=== PATIENT | female | born 1950 | race Two or more races ===

== ENCOUNTER 2021-08-28 14:36 | Outpatient (CLI) | payer MEDICARE | END 2021-08-28 14:37 | disposition home or self-care (01) | LOC: CSHMAMMO 14:36 | PROVIDERS: ATTEND Family Medicine | DX: Z12.31 Encounter for screening mammogram for malignant neoplasm of breast (principal); Z13.820 Encounter for screening for osteoporosis; M85.851 Other specified disorders of bone density and structure, right thigh; M85.852 Other specified disorders of bone density and structure, left thigh | CPT/HCPCS: 77063; 77067; 77080 ==

== ENCOUNTER 2022-10-07 10:53 | Outpatient (CLI) | payer MEDICARE | END 2022-10-07 10:54 | disposition home or self-care (01) | LOC: CSHMAMMO 10:53 | PROVIDERS: ATTEND Family Medicine | DX: Z12.31 Encounter for screening mammogram for malignant neoplasm of breast (principal) | CPT/HCPCS: 77063; 77067 ==

== ENCOUNTER 2023-10-16 10:17 | Outpatient (CLI) | payer MEDICARE | END 2023-10-16 10:18 | disposition home or self-care (01) | LOC: CSHMAMMO 10:17 | PROVIDERS: ATTEND Family Medicine | DX: Z12.31 Encounter for screening mammogram for malignant neoplasm of breast (principal); Z13.820 Encounter for screening for osteoporosis; Z78.0 Asymptomatic menopausal state; M85.89 Other specified disorders of bone density and structure, multiple sites | CPT/HCPCS: 77063; 77067; 77080 ==